=== PATIENT | male | born 2000 | race Caucasian/White ===

== ENCOUNTER 2021-03-03 12:31 | Emergency (ER) | payer SELFPAY ==
--- NOTE | 2021-03-03 12:37 | EDM.PDOC ---
ED HPI GENERAL MEDICAL PROBLEM - General Chief Complaint: Genitourinary Problem Stated Complaint: uti?? Time Seen by Provider: 03/03/21 12:32 Source of Information: Reports: Patient - History of Present Illness INITIAL COMMENTS - FREE TEXT/NARRATIVE: Geremias, 20-year-old male, presents with dysuria with occasional blood appearance. States this started intermittently yesterday and has continued into today. States of burning with urination as well as hematuria seen on most voids. Denies flank pain, back pain, testicle or bladder pain. Overall good general health denying fever chills. Onset Date: 03/02/21 Duration: Day(s):, Constant, Getting Worse, Intermittent Location: Reports: Pelvis Quality: Reports: Burning Severity: Moderate Improves with: Reports: None Worsens with: Reports: Other (Urination) Context: Reports: Other (none) Associated Symptoms: Reports: No Other Symptoms - Related Data Allergies Allergy/AdvReac Type Severity Reaction Status Date / Time No Known Allergies Allergy Verified 03/03/21 12:42 Home Meds: Home Meds . [No Known Home Meds] 03/03/21 [History] Past Medical History - Past Health History Medical/Surgical History: Denies Medical/Surgical History - Past Surgical History Musculoskeletal Surgical History: Reports: Other (See Below) (Fracture right thumb with pinning.) Social & Family History - Family History Family Medical History: No Pertinent Family History - Tobacco Use Tobacco Use Status *Q: Never Tobacco User - Caffeine Use Caffeine Use: Reports: Soda - Alcohol Use Alcohol Use History: Yes Alcohol Use Frequency: Socially - Recreational Drug Use Recreational Drug Use: No Drug Use in Last 12 Months: No - Sexual History Sexual History: Reports: Sexually Active ( 2+ weeks since any activity), Vaginal [place] ( 2+ weeks) Contraceptive Use: Reports: Rarely/Does Not Use ED ROS GENERAL - Review of Systems Review Of Systems: See Below Constitutional: Reports: No Symptoms HEENT: Reports: No Symptoms Respiratory: Reports: No Symptoms Cardiovascular: Reports: No Symptoms Endocrine: Reports: Other ( dysuria with occasional hematuria) GI/Abdominal: Reports: No Symptoms : Reports: Dysuria, Hematuria. Denies: Flank Pain, Frequency, Incontinence, Urgency Musculoskeletal: Reports: No Symptoms Skin: Reports: No Symptoms Neurological: Reports: No Symptoms Psychiatric: Reports: No Symptoms Hematologic/Lymphatic: Reports: No Symptoms Immunologic: Reports: No Symptoms ED EXAM, GENERAL - Physical Exam Exam: See Below Free Text/Narrative:: Alert, oriented, in no acute distress. Denies any issues other than as mentioned in HPI chief complaint. Recently relocated to [place] from [place]. HEENT is negative discharge or deformity with pink moist mucous membranes no erythema in the oropharynx. Neck is soft supple no lymphadenopathy or JVD appreciated. Thorax is clear with no wheezes nor crackles. Cardiac is S1-S2 with no appreciated murmur. There is no percussive tenderness to the flank regions bilateral. There is no abdominal pelvic tenderness. Motion of the extremities is intact and expresses no difficulty in his positioning. UA pending. After discussion and he was agreeing urethral swab procedure is prepared. Supine positioning with his pants around down exposing genitalia which is free of any lesions with trace discharge from the urethra. Cleansing swab was used to remove any of the excess drainage which is predominantly clear in its presentation. Swab was introduced to the urethra 4 cm and removed placed in sterile solution for laboratory processing. Tolerated the procedure well. Course - Vital Signs Last Recorded V/S: Last Vital Signs Temp 98.6 F 03/03/21 12:35 Pulse 77 03/03/21 12:35 Resp 18 03/03/21 12:35 BP 153/89 H 03/03/21 12:44 Pulse Ox 96 03/03/21 12:35 - Orders/Labs/Meds Orders: Active Orders 24 hr Category Date Time Status CHLAMYDIA/GC NUCLEIC ACID AMP [MREF] Stat Lab 03/03/21 13:33 Ordered CULTURE URINE [RM] Stat Lab 03/03/21 12:38 Received Labs: Laboratory Tests 03/03/21 Range/Units 12:38 Specimen Type Urincc Urine Color Yellow (YELLOW) Urine Appearance Clear (CLEAR) Urine pH 5.5 (5.0-9.0) Ur Specific Russell 1.025 (1.005-1.030) Urine Protein Negative (NEGATIVE) mg/dL Urine Glucose (UA) Negative (NEGATIVE) mg/dL Urine Ketones Negative (NEGATIVE) mg/dL Urine Occult Blood Small H (NEGATIVE) Urine Nitrite Negative (NEGATIVE) Urine Bilirubin Negative (NEGATIVE) Urine Urobilinogen 0.2 (0.2-1.0) E.U./dL Ur Leukocyte Esterase Moderate H (NEGATIVE) Urine RBC 0-5 (0-5) /HPF Urine WBC >100 H (0-5) /HPF Ur Epithelial Cells Rare /LPF Urine Bacteria Rare (NONE TO FEW) /HPF - Re-Assessments/Exams Free Text/Narrative Re-Assessment/Exam: 03/03/21 13:05 Urine noted to be slightly cloudy. Denies any risk factors other than unprotected vaginal intercourse 2+ weeks ago while still in [place]. Denies flank pain, trauma, or any dehydration risks. Free Text/Narrative Re-Assessment/Exam: 03/03/21 13:41 After urinalysis returns with associated positive findings, predominantly WBCs. I discussed with him that this would require culturing before treating. At that time he states that he does have some discharge from his penis/urethra. As this is his second void was tested as well as large volume we will need to do a swab for verification/testing. He understands and agrees. Departure - Departure Time of Disposition: 13:41 Disposition: Home, Self-Care 01 Condition: Good Clinical Impression: Dysuria - Discharge Information *PRESCRIPTION DRUG MONITORING PROGRAM REVIEWED*: Not Applicable *COPY OF PRESCRIPTION DRUG MONITORING REPORT IN PATIENT NILDA: Not Applicable Instructions: Sexually Transmitted Disease, [id number], Dysuria Referrals: PCP,Not In Area [Primary Care Provider] - Forms: ED Department Discharge Additional Instructions: Your urine does not show positive findings for UTI, Slightly concentrated, and a urine culture is pending. Your swab is sent to the Department of Health and should be resulted by Wednesday. We will contact you with those results as well as the culture of your urine. You need to drink as much water as possible or other fluids to maintain good hydration as well as flush your system. No sexual activity until this is confirmed and then sexual activity should be with the use of condoms. Follow-up with clinic of your choice in the community if you should need follow- up visit pending the results and or other medical concerns. You may continue with your Tylenol, ibuprofen, and Azo's to help treat your symptoms. Sepsis Event Note (ED) - Focused Exam Vital Signs: Vital Signs Temp Pulse Resp BP Pulse Ox 03/03/21 12:44 153/89 H 03/03/21 12:35 98.6 F 77 18 168/94 H 96 - Problem List & Annotations (1) Dysuria SNOMED Code(s): 96303607 Code(s): R30.0 - DYSURIA Status: Acute Priority: Medium Current Visit: Yes - Problem List Review Problem List Initiated/Reviewed/Updated: Yes - My Orders Last 24 Hours: My Active Orders 03/03/21 12:38 CULTURE URINE [RM] Stat 03/03/21 13:33 CHLAMYDIA/GC NUCLEIC ACID AMP [MREF] Stat - Assessment/Plan Last 24 Hours: My Active Orders 03/03/21 12:38 CULTURE URINE [RM] Stat 03/03/21 13:33 CHLAMYDIA/GC NUCLEIC ACID AMP [MREF] Stat Plan: Your urine does not show positive findings for UTI, Slightly concentrated, and a urine culture is pending. Your swab is sent to the Department of Health and should be resulted by Wednesday. We will contact you with those results as well as the culture of your urine. You need to drink as much water as possible or other fluids to maintain good hydration as well as flush your system. No sexual activity until this is confirmed and then sexual activity should be with the use of condoms. Follow-up with clinic of your choice in the community if you should need follow-up visit pending the results and or other medical concerns. You may continue with your Tylenol, ibuprofen, and Azo's to help treat your symptoms.
== END 2021-03-03 13:57 | disposition home or self-care (01) ==
LOC: KA.ED 12:31
DX: R30.0 Dysuria (principal)
CPT/HCPCS: 81001; 87086; 99283; 99284

== ENCOUNTER 2021-03-09 04:59 | Emergency (ER) | payer OTHER ==
--- NOTE | 2021-03-09 05:48 | EDM.PDOC ---
ED HPI GENERAL MEDICAL PROBLEM - General Chief Complaint: General Stated Complaint: Foreign object to right ear Time Seen by Provider: 03/09/21 05:31 Source of Information: Reports: Patient History Limitations: Reports: No Limitations - History of Present Illness INITIAL COMMENTS - FREE TEXT/NARRATIVE: Patient presents with complaint of a rubber tip of his ear pod stuck in his right ear. It happened at work around midnight. He also requests results from a UA and urethral swab he had done here last Wednesday. He had been in with dysuria and purulent discharge from urethra. Right Ear Pain Score (Numeric/FACES): 3 - Related Data Allergies Allergy/AdvReac Type Severity Reaction Status Date / Time No Known Allergies Allergy Verified 03/09/21 05:00 Home Meds: Home Meds . [No Known Home Meds] 03/03/21 [History] Past Medical History - Past Health History Medical/Surgical History: Denies Medical/Surgical History HEENT History: Reports: None Cardiovascular History: Reports: None Respiratory History: Reports: None Gastrointestinal History: Reports: None Genitourinary History: Reports: None Musculoskeletal History: Reports: None Neurological History: Reports: None Psychiatric History: Reports: None Endocrine/Metabolic History: Reports: None Hematologic History: Reports: None Immunologic History: Reports: None Oncologic (Cancer) History: Reports: None Dermatologic History: Reports: None - Infectious Disease History Infectious Disease History: Reports: None - Past Surgical History Head Surgeries/Procedures: Reports: None HEENT Surgical History: Reports: None Cardiovascular Surgical History: Reports: None GI Surgical History: Reports: None Male Surgical History: Reports: None Musculoskeletal Surgical History: Reports: Other (See Below) Other Musculoskeletal Surgeries/Procedures:: Pins to right thumb Social & Family History - Family History Family Medical History: No Pertinent Family History - Caffeine Use Caffeine Use: Reports: Soda - Sexual History Sexual History: Reports: Sexually Active ( 2+ weeks since any activity), Vaginal [place] ( 2+ weeks) Contraceptive Use: Reports: Rarely/Does Not Use ED ROS GENERAL - Review of Systems Review Of Systems: Comprehensive ROS is negative, except as noted in HPI. ED EXAM, GENERAL - Physical Exam Exam: See Below Exam Limited By: No Limitations General Appearance: Alert, WD/WN, No Apparent Distress Eye Exam: Bilateral Eye: EOMI, Normal Inspection, PERRL Ears: Normal External Exam Ear Exam: Right Ear: Foreign Body (soft rubber object), Left Ear: Canal Normal, Bilateral Ear: TM normal Nose: Normal Inspection, No Blood Throat/Mouth: Normal Inspection, Normal Lips, Normal Voice, No Airway Compromise Head: Atraumatic, Normocephalic Neck: Normal Inspection, Full Range of Motion Respiratory/Chest: No Respiratory Distress, Lungs Clear, Normal Breath Sounds, No Accessory Muscle Use Cardiovascular: Regular Rate, Rhythm, No Murmur Back Exam: Normal Inspection, Full Range of Motion. No: CVA Tenderness (L), CVA Tenderness (R) Extremities: Normal Inspection, Normal Range of Motion Neurological: Alert, Oriented, Normal Cognition, No Motor/Sensory Deficits Psychiatric: Normal Affect, Normal Mood Skin Exam: Warm, Dry, Intact, Normal Color, No Rash ED GENERAL MEDICAL PROCEDURES - Additional/Other Procedure(s) Other (Free Text) Procedure(s): A forceps was used to remove a rubber object from deep in the right ear canal. No complications. Patient tolerated well. Course - Vital Signs Last Recorded V/S: Last Vital Signs Temp 97.4 F 03/09/21 05:06 Pulse 85 03/09/21 05:06 Resp 18 03/09/21 05:06 BP 126/59 L 03/09/21 05:06 Pulse Ox 95 03/09/21 05:06 - Re-Assessments/Exams Free Text/Narrative Re-Assessment/Exam: 03/09/21 06:26 FB removed from right ear canal as above. I reviewed UA and UC from last visit. Leukocyte esterase and WBC's were present on UA. UC showed only gram positive organism. We also obtained the urethral swab results which were reported as inadequate for diagnosis. I discussed findings with patient. He would really like to be treated. I reviewed UpToDate which indicated resistance rates to Gonorrhea and Chlamydia has risen considerably. It looks like the best treatment option is 1 gm of Rocephin and a week of Doxycycline 100 mg po bid. Rocephin was given IM. Doxycycline 100 mg given now and a dose sent home for tonight. Rx for doxycycline 100 mg #12, 1 po bid for 7 days total. Discussed with patient the importance of completing this treatment and the high rates of resistance. I directed him to follow up in one week in clinic. Since he has recently moved here from [place], he doesn't have a PCP here, so will follow with Arpit Munoz. Discharged to home in stable condition. Departure - Departure Time of Disposition: 05:42 Disposition: Home, Self-Care 01 Condition: Good Clinical Impression: Foreign body in right ear, initial encounter, UTI (urinary tract infection), bacterial, STD (male) - Discharge Information Additional Instructions: Drink 8 cups of water daily. Take the Doxycycline as directed for a week. In one week follow up with Arpit Munoz NP in the [facility] clinic. Call [phone] to schedule this. If worsening, recheck in clinic or ER sooner as needed. Sepsis Event Note (ED) - Evaluation Sepsis Screening Result: No Definite Risk - Focused Exam Vital Signs: Vital Signs Temp Pulse Resp BP Pulse Ox 03/09/21 05:06 97.4 F 85 18 126/59 L 95
[2021-03-09] MEDS: cefTRIAXone 1 GM Vial IM ONE (06:23)
== END 2021-03-09 06:37 | disposition home or self-care (01) ==
LOC: KA.ED 04:59
DX: T16.1XXA Foreign body in right ear, initial encounter (principal); N39.0 Urinary tract infection, site not specified; A64 Unspecified sexually transmitted disease; B96.89 Other specified bacterial agents as the cause of diseases classified elsewhere
CPT/HCPCS: 69200; 96372; 99282-25; 99283; A9270-GY; J0696